=== PATIENT | male | born 1960 | race African-American/Black ===

== ENCOUNTER 2020-11-23 10:00 | Day surgery (SDC) | payer BC ==
[2020-11-20 15:02] VITALS: BMI 32.7
[2020-11-23] MEDS ORDERED: MIDAZOLAM HCL 2 MG/2 ML SINGLE DOSE VIAL ONE ×2 (11:43→13:38)
[2020-11-23] MEDS ORDERED: ROPIVACAINE HCL 0.5% 30ML VIAL ONE (11:43)
[2020-11-23] MEDS ORDERED: PROPOFOL 20 ML ONE ×2 (13:04)
[2020-11-23] MEDS ORDERED: ONDANSETRON 4 MG/2 ML VIAL ONE (13:30)
[2020-11-23] MEDS ORDERED: ceFAZolin SODIUM 1 GM VIAL ONE (13:30)
[2020-11-23] MEDS ORDERED: DEXAMETHASONE SOD PHOSPHATE 4 MG/1 ML VIAL ONE (13:30)
[2020-11-23] MEDS ORDERED: KETOROLAC TROMETHAMINE 30 MG/1 ML VIAL ONE (14:49)
[2020-11-23] MEDS ORDERED: ONDANSETRON 4 MG/2 ML VIAL IVPUSH PRN (14:53)
[2020-11-23] MEDS ORDERED: oxyCODONE HCL 5 MG TABLET PO PRN (14:53)
[2020-11-23] MEDS ORDERED: KETOROLAC TROMETHAMINE 30 MG/1 ML VIAL IVPUSH ONE (14:54)
[2020-11-23] MEDS: oxyCODONE HCL 5 MG TABLET PO PRN (22:31)
[2020-11-24] MEDS: oxyCODONE HCL 5 MG TABLET PO PRN ×2 (04:08→09:43)
[2020-11-24 06:53] VITALS: BP 143/84; PULSE 85; TEMP 97.8
== END 2020-11-24 11:24 | disposition home or self-care (01) ==
LOC: FASU 10:00 → FM/S 20:00 → FASU 11-24 11:24
PROVIDERS: ATTEND Orthopaedic Surgery
PROC: 0LMM0ZZ Reattachment of Left Upper Leg Tendon, Open Approach (ICD-10-PCS; principal; 2020-11-23 13:45)
PROC: 0SBD4ZZ Excision of Left Knee Joint, Percutaneous Endoscopic Approach (ICD-10-PCS; 2020-11-23 13:45)
DX: S76.112A Strain of left quadriceps muscle, fascia and tendon, initial encounter (principal); S83.282A Other tear of lateral meniscus, current injury, left knee, initial encounter; S83.242A Other tear of medial meniscus, current injury, left knee, initial encounter; S89.82XA Other specified injuries of left lower leg, initial encounter; M65.862 Other synovitis and tenosynovitis, left lower leg; X58.XXXA Exposure to other specified factors, initial encounter; Y93.9 Activity, unspecified; Y92.9 Unspecified place or not applicable; Y99.9 Unspecified external cause status
CPT/HCPCS: 88304-TC; 94760; 97116-GP; 97162-GP

== ENCOUNTER 2021-05-03 07:48 | Day surgery (SDC) | payer BC ==
[2021-04-30 10:41] VITALS: BMI 32.7
[2021-05-03] MEDS ORDERED: ROPIVACAINE HCL 0.5% 30ML VIAL ONE (10:37)
[2021-05-03] MEDS ORDERED: MIDAZOLAM HCL 2 MG/2 ML SINGLE DOSE VIAL ONE (10:37)
[2021-05-03] MEDS ORDERED: EPINEPHrine/PF 1 MG/1 ML (1:1,000) AMPULE ONE (10:42)
[2021-05-03] MEDS ORDERED: BUPIVACAINE HCL/PF 2.5 MG/ML - 30 ML VIAL IJ ONE ×2 (10:42→10:49)
[2021-05-03] MEDS ORDERED: PROPOFOL 20 ML ONE (11:06)
[2021-05-03] MEDS ORDERED: ceFAZolin SODIUM 1 GM VIAL ONE (11:47)
[2021-05-03] MEDS ORDERED: oxyCODONE HCL 5 MG TABLET ONE (17:27)
[2021-05-03 18:51] VITALS: BP 140/85; PULSE 67; TEMP 97.9
== END 2021-05-03 18:51 | disposition home or self-care (01) ==
LOC: FASU 07:48
PROVIDERS: ATTEND Orthopaedic Surgery
PROC: 0LMM0ZZ Reattachment of Left Upper Leg Tendon, Open Approach (ICD-10-PCS; principal; 2021-05-03 09:30)
DX: S76.112A Strain of left quadriceps muscle, fascia and tendon, initial encounter (principal); X58.XXXA Exposure to other specified factors, initial encounter; Y93.9 Activity, unspecified; Y92.9 Unspecified place or not applicable
CPT/HCPCS: 87070; 87205; 94760